=== PATIENT | male | born 1955 | race Caucasian/White ===

== ENCOUNTER 2017-12-16 10:47 | Outpatient (CLI) | payer BC ==
[2017-12-16 17:47] LABS: BASOPHILS # (AUTO) 0.1 10^3/uL (0.0-0.1); BASOPHILS % (AUTO) 1.7 %; EOSINOPHILS # (AUTO) 0.2 10^3/uL (0.0-0.7); HGB - HEMOGLOBIN 15.4 g/dL (14.0-18.0); MEAN CORPUSCULAR HEMOGLOBIN 32.4 pg (27.0-31.0); MEAN CORPUSCULAR HGB CONC 32.7 g/dL (32.0-36.0); MEAN CORPUSCULAR VOLUME 99.4 fL (80.0-94.0); MONOCYTES # (AUTO) 0.5 10^3/uL (0.0-1.0); MONOCYTES % (AUTO) 10.2 %; NEUTROPHILS % (AUTO) 42.1 %; PLT - PLATELET COUNT 276 10^3/uL (130-450); RED BLOOD COUNT 4.75 10^6/uL (4.70-6.10); RED CELL DISTRIBUTION WIDTH 13.4 % (12.0-15.0); WHITE BLOOD COUNT 4.8 x10^3/uL (4.8-10.8)
[2017-12-16 18:15] LABS: ALBUMIN 3.8 g/dL (3.2-5.5); ALBUMIN/GLOBULIN RATIO 1.2 (1.0-2.2); ALKALINE PHOSPHATASE 59 IU/L (42-121); ALT ALANINE AMINOTRANSFERASE 24 IU/L (10-60); AST ASPARTATE AMINOTRANSFERASE 25 IU/L (10-42); BILIRUBIN,TOTAL 0.7 mg/dL (0.2-1.0); BUN - BLOOD UREA NITROGEN 14 mg/dL (6-20); CALCIUM 8.8 mg/dL (8.5-10.3); CARBON DIOXIDE - CO2 24 mmol/L (21-32); CHLORIDE 106 mmol/L (101-111); CHOL/HDL RATIO 2.8 (<5.0); CHOLESTEROL 218 mg/dL; CREATININE 0.9 mg/dL (0.6-1.2); GFR - MDRD 86 (>89); GLUCOSE 120 mg/dL (70-100); HDL CHOLESTEROL 77 mg/dL; LDL CHOLESTEROL,CALCULATED 121 mg/dL; LDL/HDL RATIO 1.6 (<3.6); SODIUM 137 mmol/L (135-145); TOTAL PROTEIN 7.1 g/dL (6.7-8.2); VLDL CHOLESTEROL 20 mg/dL
== END 2017-12-16 10:48 | disposition home or self-care (01) ==
LOC: LAB.F 10:47
PROVIDERS: ATTEND Family Medicine
DX: Z12.5 Encounter for screening for malignant neoplasm of prostate (principal); E78.5 Hyperlipidemia, unspecified
CPT/HCPCS: 36415; 80053; 80061; 83721; 84153; 85025

== ENCOUNTER 2018-01-16 09:36 | Outpatient (CLI) | payer BC ==
--- NOTE | 2018-01-17 14:07 | CT Report ---
Procedure Date: 01/16/2018 Accession Number: [id number] / [id number] Procedure: CT - Chest/Lung Screen Low Dose W/O CPT Code: FULL RESULT: EXAM CT LUNG SCREEN EXAM DATE: 01/16/2018 09:54 AM. HISTORY: 62-year-old patient with [id number]-[id number] smoking history. Currently smoking: No. Years since quittin. COMPARISON: 06/05/2016. TECHNIQUE: CT examination of the entire thorax without contrast was performed using low-dose technique. Thin section coronal, axial, sagittal and MIP axial images were obtained. In accordance with CT protocol optimization, one or more of the following dose reduction techniques were utilized for this exam: automated exposure control, adjustment of mA and/or KV based on patient size, or use of iterative reconstructive technique. FINDINGS: Nodules: Right upper lobe: 3 mm new pulmonary nodule at the anterior right middle lobe. Right middle lobe: None. Right lower lobe: None. Left upper lobe: None. Left lower lobe: None. Emphysema: Mild upper lung predominant emphysema. Pleura: Unremarkable. Aorta: Unremarkable. Mediastinum: Unremarkable. Coronary calcifications: Moderate Other pulmonary findings: None. Other extrapulmonary findings: None. IMPRESSION: Lung-RADS ASSESSMENT CATEGORY: 2 - benign appearance behavior Probability of malignancy: Less than 1% RECOMMENDATION: Recommend continued annual screening with repeat low-dose chest CT in 12 months per lung RADS guidelines. RADIA
== END 2018-01-16 09:37 | disposition home or self-care (01) ==
LOC: DI 09:36
PROVIDERS: ATTEND Family Medicine
DX: R91.1 Solitary pulmonary nodule (principal); J43.9 Emphysema, unspecified; Z87.891 Personal history of nicotine dependence

== ENCOUNTER 2018-09-28 09:17 | Outpatient (CLI) | payer BC ==
[~2018-09-28 09:17] MED LIST: ALBUTEROL NEB 2.5 MG/3 ML INH ONE
== END 2018-09-28 09:18 | disposition home or self-care (01) ==
LOC: RT 09:17
PROVIDERS: ATTEND Family Medicine
DX: J45.998 Other asthma (principal)
CPT/HCPCS: 94010

== ENCOUNTER 2018-12-22 13:43 | Outpatient (CLI) | payer BC ==
--- NOTE | 2018-12-23 11:04 | XRAY Report ---
Reason: LUMBAR DISC DISORDER Procedure Date: 12/22/2018 Accession Number: [id number] / [id number] Procedure: WCP - Lumbar Spine 2 View CPT Code: FULL RESULT: EXAM: LUMBOSACRAL SPINE RADIOGRAPHY EXAM DATE: 12/22/2018 02:03 PM. CLINICAL HISTORY: LUMBAR DISC DISORDER. COMPARISONS: LUMBAR SPINE COMPLETE 09/17/2013 10:58 AM. TECHNIQUE: 3 views. FINDINGS: Mild diffuse degenerative changes of the lumbar spine are noted with a similar appearance to the previous study. There is atherosclerosis of the aorta. Stool and gas are seen throughout the bowel. There are no dilated loops of bowel to suggest the presence of an obstruction. IMPRESSION: Mild degenerative changes of the lumbar spine with a similar appearance to the previous study. RADIA
== END 2018-12-22 13:44 | disposition home or self-care (01) ==
LOC: DI.WCP 13:43
PROVIDERS: ATTEND Family Medicine
DX: M47.817 Spondylosis without myelopathy or radiculopathy, lumbosacral region (principal)
CPT/HCPCS: 72100

== ENCOUNTER 2019-02-19 10:53 | Outpatient (CLI) | payer BC ==
--- NOTE | 2019-02-23 15:31 | CT Report ---
Reason: NICOTINE ADDICTION Procedure Date: 02/19/2019 Accession Number: [id number] / [id number] Procedure: CT - Low Dose Lung Cancer Screen CPT Code: FULL RESULT: EXAM CT LUNG SCREEN EXAM DATE: 02/19/2019 11:17 AM. HISTORY: 63-year-old patient with [id number] smoking history. Currently smoking: No. Years since quittin years. COMPARISON: CHEST SCREEN LOW DOSE W/O 01/16/2018 9:50 AM. TECHNIQUE: CT examination of the entire thorax without contrast was performed using low-dose technique. Thin section coronal, axial, sagittal and MIP axial images were obtained. In accordance with CT protocol optimization, one or more of the following dose reduction techniques were utilized for this exam: automated exposure control, adjustment of mA and/or KV based on patient size, or use of iterative reconstructive technique. FINDINGS: Nodules: Right upper lobe: Previously described 3 mm nodule anteriorly is not well seen. Right middle lobe: New 3 mm anterior right middle lobe nodule is seen (image 83/4). Right lower lobe: None. Left upper lobe: None. Left lower lobe: None. Emphysema: Minimal. Pleura: Unremarkable. Aorta: Normal caliber. Minor calcification seen. Mediastinum: Unremarkable. Coronary calcifications: Moderate. Other pulmonary findings: None. Other extrapulmonary findings: None. IMPRESSION: Lung-RADS ASSESSMENT CATEGORY: 2 - benign appearance or behavior. Probability of malignancy: Less than 1%. RECOMMENDATION: Routine low-dose lung screening CT in 12 months. RADIA
== END 2019-02-19 10:54 | disposition home or self-care (01) ==
LOC: DI 10:53
PROVIDERS: ATTEND Family Medicine
DX: Z12.2 Encounter for screening for malignant neoplasm of respiratory organs (principal); Z87.891 Personal history of nicotine dependence

== ENCOUNTER 2020-03-01 10:52 | Outpatient (CLI) | payer BC ==
--- NOTE | 2020-03-01 17:26 | CT Report ---
PROCEDURE: Low Dose Lung Cancer Screen INDICATIONS: NICOTINE ADDICTION TECHNIQUE: Noncontrast low-dose 5 mm thick sections acquired from the pulmonary apices to the posterior costophr enic angles. 7 mm thick coronal and sagittal MIP reformats were then acquired. For radiation dose r eduction, the following was used: automated exposure control, adjustment of mA and/or kV according t o patient size. COMPARISON: 02/19/2019. FINDINGS: Image quality: Excellent. Lungs and pleura: Previously described 3 mm right upper lobe and right middle lobe pulmonary nodules are not well visualized on this exam. No new pulmonary nodules are visualized. No suspicious pulmona ry mass lesions. No septal thickening or nodularity. No acute airspace disease. Visualized airways ar e patent. Mediastinum: Heart size is normal. Atherosclerosis of the coronary arteries. No pericardial effusio n. No mediastinal adenopathy by size criteria. Thoracic aorta and central pulmonary arteries are no rmal in size. Esophagus is normal in caliber. No hiatal hernia. Bones and chest wall: No suspicious bony lesions. No vertebral body compression fractures. No axil amina or supraclavicular adenopathy by size criteria. The thyroid is normal in size. Abdomen: Visualized upper abdomen solid organs and bowel loops appear normal in the absence of contr ast. IMPRESSION: CT chest without acute cardiopulmonary abnormalities. Previously described 3 mm right middle lobe and right upper lobe nodules not well visualized. No new nodules visualized. Lung RADS assessment category: 2-benign Recommendation: Routine low-dose screening chest CT in 12 months. Reviewed by: Leonardo Woods MD on 03/01/2020 5:25 PM PDT Approved by: Leonardo Woods MD on 03/01/2020 5:25 PM PDT Station ID: [id number]
== END 2020-03-01 10:53 | disposition home or self-care (01) ==
LOC: DI 10:52
PROVIDERS: ATTEND Family Medicine
DX: Z12.2 Encounter for screening for malignant neoplasm of respiratory organs (principal); Z87.891 Personal history of nicotine dependence; R91.8 Other nonspecific abnormal finding of lung field
CPT/HCPCS: G0297 ×2

== ENCOUNTER 2020-03-02 09:50 | Outpatient (CLI) | payer BC ==
[2020-03-02 15:21] LABS: BASOPHILS # (AUTO) 0.1 10^3/uL (0.0-0.1); BASOPHILS % (AUTO) 1.2 %; EOSINOPHILS # (AUTO) 0.3 10^3/uL (0.0-0.7); EOSINOPHILS % (AUTO) 5.5 %; HGB - HEMOGLOBIN 16.1 g/dL (14.0-18.0); LYMPHOCYTES # (AUTO) 1.9 10^3/uL (1.5-3.5); LYMPHOCYTES % (AUTO) 36.8 %; MEAN CORPUSCULAR HEMOGLOBIN 32.5 pg (27.0-31.0); MEAN CORPUSCULAR HGB CONC 32.7 g/dL (32.0-36.0); MEAN CORPUSCULAR VOLUME 99.4 fL (80.0-94.0); MEAN PLATELET VOLUME 9.2 fL (7.4-11.4); MONOCYTES # (AUTO) 0.6 10^3/uL (0.0-1.0); MONOCYTES % (AUTO) 11.1 %; NEUTROPHILS # (AUTO) 2.3 10^3/uL (1.5-6.6); PLT - PLATELET COUNT 310 10^3/uL (130-450); RED BLOOD COUNT 4.96 10^6/uL (4.70-6.10); RED CELL DISTRIBUTION WIDTH 12.7 % (12.0-15.0); WHITE BLOOD COUNT 5.1 x10^3/uL (4.8-10.8)
[2020-03-02 15:54] LABS: ALBUMIN 4.1 g/dL (3.2-5.5); ALBUMIN/GLOBULIN RATIO 1.3 (1.0-2.2); ALKALINE PHOSPHATASE 58 IU/L (42-121); ALT ALANINE AMINOTRANSFERASE 25 IU/L (10-60); AST ASPARTATE AMINOTRANSFERASE 20 IU/L (10-42); BILIRUBIN,TOTAL 0.9 mg/dL (0.2-1.0); BUN - BLOOD UREA NITROGEN 18 mg/dL (6-20); CALCIUM 9.4 mg/dL (8.5-10.3); CARBON DIOXIDE - CO2 25 mmol/L (21-32); CHLORIDE 101 mmol/L (101-111); CHOL/HDL RATIO 2.5 (<5.0); CHOLESTEROL 210 mg/dL; GLUCOSE 114 mg/dL (70-100); HDL CHOLESTEROL 84 mg/dL; LDL CHOLESTEROL,CALCULATED 105 mg/dL; LDL/HDL RATIO 1.3 (<3.6); SODIUM 135 mmol/L (135-145); TOTAL PROTEIN 7.3 g/dL (6.7-8.2); VLDL CHOLESTEROL 21 mg/dL
[2020-03-02 18:42] LABS: HEMOGLOBIN A1c% 5.6 % (4.27-6.07)
== END 2020-03-02 09:51 | disposition home or self-care (01) ==
LOC: LAB.S 09:50
PROVIDERS: ATTEND Family Medicine
DX: J45.909 Unspecified asthma, uncomplicated (principal); Z12.5 Encounter for screening for malignant neoplasm of prostate; R73.01 Impaired fasting glucose; E78.5 Hyperlipidemia, unspecified
CPT/HCPCS: 36415; 80053; 80061; 83036; 83721; 84153; 84443; 85025

== ENCOUNTER 2021-03-14 10:44 | Outpatient (CLI) | payer MEDICARE ==
--- NOTE | 2021-03-14 15:06 | CT Report ---
PROCEDURE: Low Dose Lung Cancer Screen INDICATIONS: HIST OF SMOKING TECHNIQUE: Noncontrast low-dose 5 mm thick sections acquired from the pulmonary apices to the posterior costophr enic angles. 7 mm thick coronal and sagittal MIP reformats were then acquired. For radiation dose r eduction, the following was used: automated exposure control, adjustment of mA and/or kV according t o patient size. COMPARISON: None. FINDINGS: Lungs and pleura: Diffuse peribronchial cuffing suggestive of nonspecific bronchitis and/or reactive airways disease.Scattered subsegmental scarring/atelectasis. No acute consolidation. No discrete or suspicious pulmonary nodules. Pleura: No pleural effusion or pneumothorax. Heart: Mild/moderate coronary atherosclerotic calcifications. Lymph nodes: Normal. Thyroid: Negative Aorta: Normal Pulmonary arteries: Normal. Esophagus: Normal. Bones: Diffuse spondolytic changes and facet arthropathy. No compression fracture. Upper abdomen: Normal. IMPRESSION: No suspicious pulmonary nodules. Lung RADS 1. Recommend screening lung CT in 12 months. Mild to moderate coronary atherosclerosis. Reviewed by: Santos Arenas MD on 03/14/2021 3:05 PM PDT Approved by: Santos Arenas MD on 03/14/2021 3:05 PM PDT Station ID: [id number]
== END 2021-03-14 10:45 | disposition home or self-care (01) ==
LOC: DI 10:44
PROVIDERS: ATTEND Internal Medicine
DX: Z12.2 Encounter for screening for malignant neoplasm of respiratory organs (principal); I25.10 Atherosclerotic heart disease of native coronary artery without angina pectoris; F17.210 Nicotine dependence, cigarettes, uncomplicated

== ENCOUNTER 2021-03-29 10:55 | Outpatient (CLI) | payer MEDICARE ==
[2021-03-29 15:04] LABS: BASOPHILS % (AUTO) 0.7 %; EOSINOPHILS # (AUTO) 0.4 10^3/uL (0.0-0.7); EOSINOPHILS % (AUTO) 6.1 %; HCT - HEMATOCRIT 49.7 % (42.0-52.0); HGB - HEMOGLOBIN 15.9 g/dL (14.0-18.0); LYMPHOCYTES # (AUTO) 2.1 10^3/uL (1.5-3.5); LYMPHOCYTES % (AUTO) 35.8 %; MEAN CORPUSCULAR HEMOGLOBIN 32.1 pg (27.0-31.0); MEAN CORPUSCULAR VOLUME 100.4 fL (80.0-94.0); MONOCYTES # (AUTO) 0.7 10^3/uL (0.0-1.0); MONOCYTES % (AUTO) 12.5 %; NEUTROPHILS # (AUTO) 2.6 10^3/uL (1.5-6.6); NEUTROPHILS % (AUTO) 44.7 %; PLT - PLATELET COUNT 297 10^3/uL (130-450); RED BLOOD COUNT 4.95 10^6/uL (4.70-6.10); RED CELL DISTRIBUTION WIDTH 12.6 % (12.0-15.0); WHITE BLOOD COUNT 5.9 x10^3/uL (4.8-10.8)
[2021-03-29 15:31] LABS: ALBUMIN 4.2 g/dL (3.2-5.5); ALBUMIN/GLOBULIN RATIO 1.3 (1.0-2.2); ALKALINE PHOSPHATASE 52 IU/L (42-121); ALT ALANINE AMINOTRANSFERASE 27 IU/L (10-60); AST ASPARTATE AMINOTRANSFERASE 22 IU/L (10-42); BILIRUBIN,TOTAL 0.5 mg/dL (0.2-1.0); BUN - BLOOD UREA NITROGEN 20 mg/dL (6-20); CALCIUM 9.8 mg/dL (8.5-10.3); CARBON DIOXIDE - CO2 29 mmol/L (21-32); CHLORIDE 102 mmol/L (101-111); CHOL/HDL RATIO 2.9 (<5.0); CHOLESTEROL 250 mg/dL; GFR - MDRD 75 (>89); GLUCOSE 125 mg/dL (70-100); HDL CHOLESTEROL 86 mg/dL; LDL CHOLESTEROL,CALCULATED 142 mg/dL; LDL/HDL RATIO 1.7 (<3.6); POTASSIUM 4.5 mmol/L (3.5-5.0); SODIUM 140 mmol/L (135-145); TOTAL PROTEIN 7.4 g/dL (6.7-8.2); TRIGLYCERIDES 108 mg/dL; VLDL CHOLESTEROL 22 mg/dL
== END 2021-03-29 10:56 | disposition home or self-care (01) ==
LOC: LAB.S 10:55
PROVIDERS: ATTEND Internal Medicine
DX: E78.5 Hyperlipidemia, unspecified (principal); Z79.899 Other long term (current) drug therapy; Z12.5 Encounter for screening for malignant neoplasm of prostate
CPT/HCPCS: 36415; 80053; 80061; 85025; G0103; 83721; 84153

== ENCOUNTER 2021-04-18 15:05 | Outpatient (CLI) | payer MEDICARE ==
[2021-04-18 15:41] LABS: FECAL OCCULT BLOOD (FIT) NEGATIVE (NEGATIVE)
== END 2021-04-18 15:06 | disposition home or self-care (01) ==
LOC: LAB 15:05
PROVIDERS: ATTEND Internal Medicine
DX: Z12.11 Encounter for screening for malignant neoplasm of colon (principal)
CPT/HCPCS: 82274

== ENCOUNTER 2021-05-22 08:55 | Outpatient (CLI) | payer MEDICARE ==
--- NOTE | 2021-05-22 11:07 | Ultrasound Report ---
PROCEDURE: Aorta Screening INDICATIONS: SMOKING GREATER THAN 30 PACKS PER YEAR TECHNIQUE: Real time scanning was performed of the aorta and iliac arteries, with image documentatio n. COMPARISON: None FINDINGS: Aorta: Proximal aortic diameter measures 2.9 x 2.8 cm. Mid-aorta measures 2.3 x 2.1 cm. Distal aor tic diameter is 1.8 x 1.8 cm. Minimal atherosclerotic plaque in the distal abdominal aorta. Iliac arteries: Right common iliac artery measures 1.4 x 1.5 cm. Left common iliac artery measures 1.3 x 1.5 cm. IMPRESSION: Mild aortoiliac atherosclerosis with no aneurysm of the aorta or iliac arteries. Reviewed by: Melvin Zaidi MD on 05/22/2021 11:06 AM PST Approved by: Melvin Zaidi MD on 05/22/2021 11:06 AM PST Station ID: [id number]
== END 2021-05-22 08:56 | disposition home or self-care (01) ==
LOC: DI 08:55
PROVIDERS: ATTEND Internal Medicine
DX: Z13.6 Encounter for screening for cardiovascular disorders (principal); F17.210 Nicotine dependence, cigarettes, uncomplicated; I70.8 Atherosclerosis of other arteries

== ENCOUNTER 2021-09-18 08:00 | Outpatient (CLI) | payer MEDICARE ==
[2021-09-18 08:53] LABS: BASOPHILS % (AUTO) 0.6 %; EOSINOPHILS # (AUTO) 0.2 10^3/uL (0.0-0.7); EOSINOPHILS % (AUTO) 4.1 %; HCT - HEMATOCRIT 44.3 % (42.0-52.0); HGB - HEMOGLOBIN 15.1 g/dL (14.0-18.0); LYMPHOCYTES # (AUTO) 1.6 10^3/uL (1.5-3.5); LYMPHOCYTES % (AUTO) 32.8 %; MEAN CORPUSCULAR HEMOGLOBIN 30.8 pg (27.0-31.0); MEAN CORPUSCULAR HGB CONC 34.1 g/dL (32.0-36.0); MEAN CORPUSCULAR VOLUME 90.2 fL (80.0-94.0); MEAN PLATELET VOLUME 9.5 fL (7.4-11.4); MONOCYTES # (AUTO) 0.7 10^3/uL (0.0-1.0); NEUTROPHILS # (AUTO) 2.3 10^3/uL (1.5-6.6); NEUTROPHILS % (AUTO) 47.3 %; PLT - PLATELET COUNT 223 10^3/uL (130-450); RED BLOOD COUNT 4.91 10^6/uL (4.70-6.10); RED CELL DISTRIBUTION WIDTH 13.5 % (12.0-15.0); WHITE BLOOD COUNT 4.9 x10^3/uL (4.8-10.8)
[2021-09-18 09:14] LABS: ALBUMIN 4.2 g/dL (3.2-5.5); ALBUMIN/GLOBULIN RATIO 1.2 (1.0-2.2); ALKALINE PHOSPHATASE 68 IU/L (42-121); ALT ALANINE AMINOTRANSFERASE 50 IU/L (10-60); AST ASPARTATE AMINOTRANSFERASE 41 IU/L (10-42); BILIRUBIN,TOTAL 0.9 mg/dL (0.2-1.0); BUN - BLOOD UREA NITROGEN 17 mg/dL (6-20); CALCIUM 9.2 mg/dL (8.5-10.3); CARBON DIOXIDE - CO2 24 mmol/L (21-32); CHLORIDE 95 mmol/L (101-111); CHOL/HDL RATIO 1.8 (<5.0); CHOLESTEROL 142 mg/dL; CREATININE 2.1 mg/dL (0.6-1.2); GFR - MDRD 32 (>89); GLUCOSE 112 mg/dL (70-100); HDL CHOLESTEROL 77 mg/dL; LDL CHOLESTEROL,CALCULATED 51 mg/dL; LDL/HDL RATIO 0.7 (<3.6); POTASSIUM 2.7 mmol/L (3.5-5.0); SODIUM 136 mmol/L (135-145); TOTAL PROTEIN 7.7 g/dL (6.7-8.2); TRIGLYCERIDES 69 mg/dL; VLDL CHOLESTEROL 14 mg/dL
[2021-09-19 14:12] LABS: HEPATITIS A IGM NON-REACTIVE (NON-REACTIVE); HEPATITIS B CORE ANTIBODY IGM NON-REACTIVE (NON-REACTIVE); HEPATITIS B SURFACE ANTIGEN NON-REACTIVE (NON-REACTIVE); HEPATITIS C ANTIBODY NON-REACTIVE (NON-REACTIVE)
== END 2021-09-18 23:59 | disposition home or self-care (01) ==
LOC: LAB 08:00
PROVIDERS: ATTEND Internal Medicine
DX: E78.5 Hyperlipidemia, unspecified (principal); Z79.899 Other long term (current) drug therapy; Z11.59 Encounter for screening for other viral diseases
CPT/HCPCS: 36415; 80053; 80061; 80074; 83721; 85025

== ENCOUNTER 2021-09-29 11:39 | Outpatient (CLI) | payer MEDICARE ==
[2021-09-29 12:03] LABS: CALCIUM 9.1 mg/dL (8.5-10.3); CREATININE 1.3 mg/dL (0.6-1.2)
--- NOTE | 2021-09-29 12:39 | XRAY Report ---
PROCEDURE: Hip w/Pelvis 2-3V RT INDICATIONS: HIP PAIN,RIGHT TECHNIQUE: AP pelvis with lateral view(s) of the right hip(s). COMPARISON: None. FINDINGS: BONES/JOINTS: No acute, displaced fracture. Mild osteophytosis of the right superior lateral acetabul um. No widening of the pubic symphysis. The sacroiliac joints are symmetric. The femoral heads are normal ly seated within the acetabulum. SOFT TISSUES: No focal abnormality. IMPRESSION: 1.No significant abnormality. Reviewed by: Carlos Avalos MD on 09/29/2021 12:37 PM PDT Approved by: Carlos Avalos MD on 09/29/2021 12:37 PM PDT Station ID: [id number]
== END 2021-09-29 11:40 | disposition home or self-care (01) ==
LOC: DI 11:39
PROVIDERS: ATTEND Physician Assistant
DX: M25.551 Pain in right hip (principal); E87.6 Hypokalemia
CPT/HCPCS: 36415; 80048

== ENCOUNTER 2021-10-13 11:10 | Outpatient (CLI) | payer MEDICARE ==
[2021-10-13 11:33] LABS: ALBUMIN 4.1 g/dL (3.2-5.5); ALBUMIN/GLOBULIN RATIO 1.2 (1.0-2.2); BILIRUBIN,TOTAL 1.1 mg/dL (0.2-1.0); CALCIUM 9.2 mg/dL (8.5-10.3); CREATININE 1.2 mg/dL (0.6-1.2); POTASSIUM 4.3 mmol/L (3.5-5.0); TOTAL PROTEIN 7.6 g/dL (6.7-8.2)
== END 2021-10-13 11:11 | disposition home or self-care (01) ==
LOC: LAB 11:10
PROVIDERS: ATTEND Physician Assistant
DX: N17.9 Acute kidney failure, unspecified (principal)
CPT/HCPCS: 36415; 80053

== ENCOUNTER 2022-01-03 16:49 | Outpatient (CLI) | payer MEDICARE ==
--- NOTE | 2022-01-04 15:37 | XRAY Report ---
PROCEDURE: Shoulder 3 View LT INDICATIONS: SHOULDER IMPINGEMENT SYNDROME TECHNIQUE: 3 views of the shoulder were acquired. COMPARISON: None. FINDINGS: Bones: No fractures or dislocations. No suspicious bony lesions. Visualized ribs appear intact. S evere acromioclavicular degenerative narrowing. Humeral head is mildly high riding. Soft tissues: No suspicious soft tissue calcifications. IMPRESSION: Acromioclavicular degenerative change. High riding humeral head which can be seen with rotator cuff pathology. Reviewed by: Margarita Vasquez MD on 01/04/2022 3:36 PM PDT Approved by: Margarita Vasquez MD on 01/04/2022 3:36 PM PDT Station ID: [id number]
== END 2022-01-03 16:50 | disposition home or self-care (01) ==
LOC: DI 16:49
PROVIDERS: ATTEND Physician Assistant Medical
DX: M75.42 Impingement syndrome of left shoulder (principal); M19.012 Primary osteoarthritis, left shoulder

== ENCOUNTER 2022-02-23 07:23 | Outpatient (CLI) | payer MEDICARE ==
--- NOTE | 2022-02-23 09:32 | CT Report ---
PROCEDURE: Sinuses INDICATIONS: CHRONIC PANSINUSITIS TECHNIQUE: Noncontrast 3.0 mm axial images acquired from the frontal sinuses to the mid-sella, with coronal and sagittal reformats. For radiation dose reduction, the following was used: automated exposure control , adjustment of mA and/or kV according to patient size. COMPARISON: None. FINDINGS: Image quality: Excellent. Maxillary Sinuses: No bony remodeling or destruction. Moderate mucosal thickening is seen within the inferior left maxillary sinus. Ethmoid Air Cells: No bony remodeling or destruction. Sinuses are clear. Sphenoid Sinuses: No bony remodeling or destruction. Sinuses are clear. Frontal Sinuses: No bony remodeling or destruction. Sinuses are clear. The frontal sinuses are rel atively poorly developed. Ostiomeatal Complexes: Ostiomeatal complexes are patent. No Fercho cells. Miscellaneous: Visualized intra-orbital contents are normal. No amie bullosa. There is mild leftw stephen nasal septal deviation. IMPRESSION: Focal moderate mucosal thickening is seen within the inferior left maxillary sinus. Mild leftward nasal septal deviation noted. Reviewed by: Zeferino Gee MD on 02/23/2022 8:31 AM YI Approved by: Zeferino Gee MD on 02/23/2022 8:31 AM YI Station ID: [id number]
== END 2022-02-23 07:24 | disposition home or self-care (01) ==
LOC: DI 07:23
PROVIDERS: ATTEND Otolaryngology
DX: J32.4 Chronic pansinusitis (principal); J34.2 Deviated nasal septum

== ENCOUNTER 2022-02-26 09:25 | Outpatient (CLI) | payer MEDICARE ==
--- NOTE | 2022-02-26 16:20 | CT Report ---
PROCEDURE: Low Dose Lung Cancer Screen INDICATIONS: SMOKER TECHNIQUE: Noncontrast low-dose axial images were acquired from the pulmonary apices to the posterior costophren ic angles. Multiplanar MIP reformats were then reconstructed. For radiation dose reduction, the follo wing was used: automated exposure control, adjustment of mA and/or kV according to patient size. COMPARISON: None. FINDINGS: Image quality: Excellent. Lungs and pleura: Peripheral reticular thickening. No mass or significant pulmonary nodules. Airways are clear. No acute airspace opacity. No pleural effusion. No pneumothorax. Mediastinum: Heart size is normal. Moderate coronary artery calcifications.No pericardial effusion. No mediastinal adenopathy by size criteria. Thoracic aorta and central pulmonary arteries are norm al in size. Esophagus is normal in caliber. No hiatal hernia. Bones and chest wall: No suspicious bony lesions. No vertebral body compression fractures. No axil amina or supraclavicular adenopathy by size criteria. The thyroid is normal in size and there are no incidental findings. Abdomen: Visualized upper abdomen solid organs and bowel loops appear normal in the absence of contr ast. IMPRESSION: 1. No significant pulmonary nodules. LI-RADS 1. Recommend follow-up lung cancer screening chest CT in 12 months. 2. Moderate coronary artery calcifications. Reviewed by: Cortez Brooks MD on 02/26/2022 4:19 PM PDT Approved by: Cortez Brooks MD on 02/26/2022 4:19 PM PDT Station ID: [id number]
== END 2022-02-26 09:26 | disposition home or self-care (01) ==
LOC: DI 09:25
PROVIDERS: ATTEND Physician Assistant
DX: Z12.2 Encounter for screening for malignant neoplasm of respiratory organs (principal); F17.210 Nicotine dependence, cigarettes, uncomplicated

== ENCOUNTER 2022-03-20 08:53 | Outpatient (CLI) | payer MEDICARE ==
[2022-03-20 09:39] VITALS: BP 130/88
--- NOTE | 2022-03-20 09:39 | SLEEP CARE CONSULTATION ---
Information from patient questionnaire entered by Briana Hazel. I have reviewed and concur with the information entered by Briana Hazel. This document represents the service I personally performed and the decisions made by me, Christiana Duff ARNP. History of Present Illness Service Date and Time: 03/20/2022 0853 Reason for Visit: New patient, Previously diagnosed sleep apnea Chief Complaint: reports: Unrefreshed sleep, Snoring, Frequent awakenings at night Date of Onset: MANY YEARS Usual bedtime: varies; 9-10 PM Time it takes to fall asleep: 5-30 MINUTES Snores at night: Yes Observed to quit breathing while asleep: Yes Number of times waking at night: 2 Reasons for waking at night: reports: Snoring, Pain, Bathroom Toss, Turn, or Twitch while sleeping: Yes Recalls having dreams: Yes Usually gets out of bed at: 6-8AM Feels refreshed in the morning: Yes (AT TIMES YES, OTHER TIMES NO ) Morning headache: No Sleepy or fatigued during the day: No (VERY RARELY ) Ever fallen asleep while driving: No Takes day naps: No Dreams during day naps: No Prior sleep studies: Yes Year and Where: 2014 HOME, DR. Mendoza Type of Sleep Study: Home sleep study Additional HPI information: GABRIELA GAMBLE was previously diagnosed to have moderate positional, AHI 17, obstructive sleep apnea-hypopnea syndrome in 11/2014. He used a CPAP for a few years but got "tangled in the hose" and stopped used his CPAP for many years. I had the pleasure of seeing him regarding the possibility of him still having a sleep disorder. His current complaints are frequent night awakenings, snoring and unrefreshed sleep. He has sinus issues which cause lots of post nasal drip for which he has had a turbinate reduction. He does not feel this surgery has done anything for the post nasal drip. He states he still snores depending up on his position when he sleeps. He will have snoring wake him up and he will turn over. He will not always wake up feeling rested. He states he gets up a couple times a night for the bathroom. He can usually fall back to sleep quickly. He is here to seek help with getting better sleep and see if there is anything else that can help him. - Parasomnia Symptoms Ever been unable to move upon waking from sleep: No Walks in sleep: No Talks in sleep: No Ever acted out dreams in sleep: No Ever felt weak in the knees when startled or emotional: No Bothered by creepy, crawly, restless sensations in legs: No Problems with memory or concentration: No Subjective Initial [place] Sleepiness Scale score: 2 (03/19/22) Past Medical History Past Medical History: reports: Hypertension, Claustrophobia, Anxiety, Depression, Emphysema, GERD Social History The patient's occupation is a RE. Patient is Single and lives in [place]. Have you smoked in the past 12 months: No Cigarettes per day (20/pack): 20 Years of smokin Quit date: 1998 Smoking Pack Years: 25.0 Alcohol use: Yes Alcohol amount and frequency: 2-3 DAILY Caffeine use: Yes Caffeine amount and frequency: 16OZ DAILY Family History Family history of sleep disordered breathing: No (unknown) Allergies and Home Medications Known drug allergies: No Drug allergies reviewed: Yes (NKDA) Home medication list reviewed: Yes Allergy and home medication list: Allergies No Known Drug Allergies Allergy (Verified 09/18/14 17:25) Medications: Clonazepam BP medication (new, hasn't picked up yet) Review of Systems Weight loss over past 5 years: 20 Cardiovascular: reports: high blood pressure Respiratory: reports: wheeze, chronic cough Gastrointestinal: reports: heartburn Urinary: reports: frequency, urgency Psychiatric: reports: anxiety, depression Ear/Nose/Throat: reports: nasal congestion, sinus problems, injury to nose Musculoskeletal: reports: joint pain, neck pain Immunologic: reports: sneezing (POSTNASAL DRIP ) Physical Exam Vital signs obtained and entered by: MARYELLEN LUO Blood Pressure: 130/88 (left arm ) Cuff size: regular Heart Rate: 75 O2 Saturation: 97 Height: 6 ft Weight: 223 lb (214 at home w/out clothes) Body Mass Index: 30.2 BMI Classification: Obese Neck circumference: 17 (inches) Heart: regular rate and rhythm Lungs: clear bilaterally Impression and Plan 1. Obstructive Sleep Apnea-Hypopnea Syndrome, moderate, previously diagnosed in 2014 but no longer using a CPAP or other therapy. Still suggested by a history of loud and irregular snoring, observed cessation of breath while asleep, frequent awakening during the night and unrefreshed sleep. I recommend proceedin g to polysomnography to confirm the diagnosis and to assess severity. If the patient has significant sleep disordered breathing, a manual CPAP titration study will also be performed to find the optimal treatment pressure. I informed the patient of what the sleep studies involve and after some discussion, obtained agreement to proceed. The pathophysiology of obstructive sleep apnea- hypopnea syndrome was discussed with the patient and health risks of cardiovascular and cerebrovascular disease if not treated. Risks of drowsy driving discussed in detail and patient advised to avoid long distance driving and to loin puller at the first sign of drowsiness. Patient agreed to plan. * Schedule polysomnography * Avoid long distance driving or driving when feeling sleepy. * Avoid alcohol, sedative and muscle relaxant around bedtime. * Attempt to lose weight. * Review instructions provided by trained office staff on how to prepare for the sleep study. * Return for follow-up after sleep study completed. Counseling Topics: Weight loss health impact Visit Type: In Office Time Spent with Patient (minutes): 34 Provider Statement: I spent 100% of the Face to Face Visit with the patient with greater than 50% spent counseling the patient and coordination of care.
== END 2022-03-20 08:54 | disposition home or self-care (01) ==
LOC: SC 08:53
PROVIDERS: ATTEND Nurse Practitioner Family
DX: G47.33 Obstructive sleep apnea (adult) (pediatric) (principal); E66.9 Obesity, unspecified; Z68.30 Body mass index [BMI] 30.0-30.9, adult; Z87.891 Personal history of nicotine dependence
CPT/HCPCS: 99203; G0463; 99212

== ENCOUNTER 2022-04-11 09:32 | Outpatient (CLI) | payer MEDICARE | END 2022-04-11 09:33 | disposition home or self-care (01) | LOC: SC 09:32 | PROVIDERS: ATTEND Nurse Practitioner Family | DX: G47.33 Obstructive sleep apnea (adult) (pediatric) (principal); R09.02 Hypoxemia | CPT/HCPCS: G0399 ×2; 95806 ==

== ENCOUNTER 2022-04-27 13:56 | Outpatient (CLI) | payer MEDICARE ==
--- NOTE | 2022-04-27 13:50 | SLEEP CARE CONSULTATION ---
Information from patient questionnaire entered by Melissa Flores. I have reviewed and concur with the information entered by Melissa Folres. This document represents the service I personally performed and the decisions made by me, Christiana Duff ARNP. History of Present Illness Service Date and Time: 04/27/2022 1356 Initial [place] Sleepiness Scale score: 2 (03/19/22) Current [place] Sleepiness Scale score: 2 Additional HPI information: GABRIELA GAMBLE returns via video telehealth visit for follow up and results of the recently performed home sleep study. I explained the pathophysiology behind obstructive sleep apnea. We then spent q uite a bit of time discussing different treatment options. For mild obstructive sleep apnea, surgery and oral appliance are alternatives to nasal CPAP therapy but in moderate or severe cases, nasal CPAP is the most effective and reliable treatment. I reviewed the impact of weight changes on sleep apnea and strongly recommended losing weight. After some discussion, the patient opted to go with the nasal CPAP therapy. Nasal autoCPAP set at 4-15 cmH20 will be ordered with rationale explained. A manual titration study will be ordered if unable to find optimal pressure with office adjustments. I explained how CPAP machine works and what to expect when using the machine. Using CPAP every night in order to get used to it was emphasized. Patient advised to put CPAP mask on before getting into bed so as not to fall asleep without CPAP. To assist acclimation to CPAP use, it could also be used for a short time during day while reading or watching TV. The patient was instructed to call the CPAP supplier to discuss any mechanical problem that may occur. If the mask given is uncomfortable or is difficult to keep on through the night even with adjustment, contact the CPAP supplier as man y will replace with another mask style if notified before 30 days. If snoring or perceives is not getting enough air or too much air from the machine, notify this office. Patient counseled not drink alcohol less than 4 hours before bedtime as it can increase snoring and apnea. Patient was cautioned about risks of drowsy driving until sleepiness symptoms resolve. Patient denies drowsy driving. Sleep Study - Results Type of Sleep Study: Home sleep study (COMPLETED 04-11-22) Prior sleep studies: Yes Year and Where: 2014 HOME, DR. Mendoza Polysomnography/Home Sleep Study results: Physician Impression: The quality of the study is good. The length of the study is adequate (> 240 minutes). Please also see the tabulated and graphic data. 1. Obstructive Sleep Apnea-Hypopnea (ICD-10 G47.33), mild, with an AHI of 8.2/hr and matias SaO2 of 82%. During the study, the patient had 7 apneas (7 obstructive, 0 central, 0 mixed) and 40 hypopneas. The longest episode lasted 140.0 seconds. The patient did not sleep supine during this study (supine AHI was 0.0 and non-supine, 8.22). 2. Hypoxemia (ICD-10 R09.02), mild, with the lowest oxygen saturation of 82 % and 69.2 minutes with SaO2 under 90%. Baseline oxygen saturation was normal (Average oxygen saturation was 91%). Allergies and Home Medications Drug allergies reviewed: Yes (NKDA) Home medication list reviewed: Yes (antihistamine at night) Review of Systems Review of systems same as previous: No (coronary calcium deposits in heart, referred to cardiology) Physical Exam Vital signs obtained and entered by: VIA PHONE Height: 6 ft Weight: 213 lb (pt reported) Body Mass Index: 28.8 BMI Classification: Overweight Impression and Plan 1. Obstructive Sleep Apnea-Hypopnea Syndrome, mild, with lowest oxygen saturation of 82%. Positive pressure therapy could benefit hypertension, anxiety, depression and gastric reflux. As mentioned above, the patient will be started on nasal autoCPAP therapy with pressure set at 4-15 cmH2O. Compliance guidelines also reviewed. A copy of compliance guidelines will be given for reference at check out. 2. Hypoxemia, mild, with the lowest oxygen saturation of 82 % and 69.2 minutes with SaO2 under 90%. His baseline oxygen saturation was normal with an average oxygen saturation of 91%. 3. Overweight, unspecified. Currently patients BMI is 28.8. Obesity increases the risk of apnea, CPAP pressure requirements and overall health risks especially cardiovascular and diabetes. Thus patient is advised to lose weight. * Nasal auto CPAP therapy, pressure at 4-15 cm H2O. * Attempt to lose weight. * Avoid alcohol consumption near bedtime. * Avoid supine sleep until using CPAP. * The patient is again cautioned about driving until sleepiness completely resolves. * Return one month after CPAP obtained. I will assess response to therapy and compliance at that time. Counseling Topics: Weight loss health impact Visit Type: Telehealth Video Video Type: Message[employer] Patient Location: Home Location of Provider: Office Patient agrees and consents to this telehealth visit type: Yes Patient agrees to have their insurance billed: Yes Time Spent with Patient (minutes): 23 Provider Statement: I spent 100% of the Telehealth Video Call with the patient with greater than 50% spent counseling the patient and coordination of care.
== END 2022-04-27 13:57 | disposition home or self-care (01) ==
LOC: SC 13:56
PROVIDERS: ATTEND Nurse Practitioner Family
DX: G47.33 Obstructive sleep apnea (adult) (pediatric) (principal); R09.02 Hypoxemia; E66.3 Overweight; Z68.28 Body mass index [BMI] 28.0-28.9, adult
CPT/HCPCS: 99213; G0463; 99212

== ENCOUNTER 2022-05-01 08:04 | Outpatient (CLI) | payer MEDICARE | END 2022-05-01 08:05 | disposition home or self-care (01) | LOC: DI 08:04 | PROVIDERS: ATTEND Physician Assistant | DX: I77.810 Thoracic aortic ectasia (principal) | CPT/HCPCS: 93306 ==

== ENCOUNTER 2022-05-23 09:34 | Outpatient (CLI) | payer MEDICARE ==
[2022-05-23 09:55] LABS: ALBUMIN 3.7 g/dL (3.2-5.5); ALBUMIN/GLOBULIN RATIO 1.1 (1.0-2.2); BILIRUBIN,TOTAL 0.6 mg/dL (0.2-1.0); CALCIUM 8.8 mg/dL (8.5-10.3); CREATININE 1.1 mg/dL (0.6-1.2); POTASSIUM 4.3 mmol/L (3.5-5.0)
[2022-05-23 12:10] LABS: ESTIMATED AVERAGE GLUCOSE 126 mg/dL (70-100)
== END 2022-05-23 09:35 | disposition home or self-care (01) ==
LOC: LAB 09:34
PROVIDERS: ATTEND Physician Assistant
DX: R73.01 Impaired fasting glucose (principal)
CPT/HCPCS: 36415; 80053; 83036

== ENCOUNTER 2022-08-30 07:12 | Day surgery (SDC) | payer MEDICARE ==
--- NOTE | 2022-08-30 07:13 | ANESTHESIA ---
Pre-Anesthesia VS, & Labs - Diagnosis screening - Procedure colonoscopy Height: 6 ft - NPO >8 hours Last Fluid Intake: am prep - Lab Results Lab results reviewed: Yes Home Medications and Allergies Omeprazole [PriLOSEC] 20 mg PO DAILY 09/18/14 Simvastatin 20 mg PO DAILY 09/18/14 busPIRone [Buspar] 5 mg PO DAILY 09/18/14 Allergies/Adverse Reactions: Allergies Allergy/AdvReac Type Severity Reaction Status Date / Time prednisone AdvReac Hallucinati Verified 08/30/22 07:45 ons Anes History & Medical History - Anesthetic History Anesthesia Complications: reports: No previous complications Family history of Anesthesia Complications: Denies Family history of Malignant Hyperthermia: Denies - Medical History Cardiovascular: reports: Hypertension, High cholesterol Pulmonary: reports: Sleep apnea Gastrointestinal: reports: GERD Smoking Status: Never smoker - Surgical History General: reports: Colonoscopy Exam General: Alert, Oriented x3, Cooperative Dental: WNL Mouth Openin Fingerbreadth Neck Mobility: Normal Mallampati classification: II Thyromental Distance: 4-6 cm Respiratory: Lungs clear, Normal breath sounds, No respiratory distress Cardiovascular: Regular rate Neurological: Normal speech Mental/Cognitive Status: Alert/Oriented X3, Normal for patient Cognitive Status: Within normal limits Plan Anesthesia Type: Total IV Consent for Procedure(s) Verified and Reviewed: Yes Code Status: Attempt Resuscitation ASA classification: 2-Mild systemic disease Is this case an emergency?: No
[2022-08-30] MEDS ORDERED: LACTATED RINGERS 1,000 ML IV ONE (07:16)
[2022-08-30] MEDS ORDERED: PROPOFOL 500 MG/50 ML 500 MG/50 ML VIAL ONE (07:36)
[2022-08-30] MEDS ORDERED: MIDAZOLAM 2 MG/2 ML VIAL ONE (07:56)
[2022-08-30] MEDS ORDERED: LIDOCAINE-PF 2% 10 ML AMP SUBQ ONE (08:32)
[2022-08-30] MEDS ORDERED: LACTATED RINGERS 500 ML IV ONE (08:55)
[2022-08-30 09:14] VITALS: BP 102/59
--- NOTE | 2022-08-30 09:32 | ANESTHESIA POST OP EVALUATION ---
Anesthesia Post Eval - Post Anesthesia Eval Vitals: Last Vital Signs Temp 36.5 C 08/30/22 09:13 Pulse 68 08/30/22 09:13 Resp 18 08/30/22 09:13 BP 102/59 L 08/30/22 09:13 Pulse Ox 99 08/30/22 09:13 O2 Flow Rate CV Function Including HR & BP: Stable Pain Control: Satisfactory Nausea & Vomiting: Negative Mental Status: Baseline Respiratory Status: Airway Patent Hydration Status: Satisfactory Anesthesia Complications: None
== END 2022-08-30 07:13 | disposition home or self-care (01) ==
LOC: SDS 07:12
PROVIDERS: ATTEND Surgery
PROC: 0DBN8ZZ Excision of Sigmoid Colon, Via Natural or Artificial Opening Endoscopic (ICD-10-PCS; 2022-08-30)
PROC: 0DBF8ZX Excision of Right Large Intestine, Via Natural or Artificial Opening Endoscopic, Diagnostic (ICD-10-PCS; 2022-08-30)
PROC: 0DBG8ZX Excision of Left Large Intestine, Via Natural or Artificial Opening Endoscopic, Diagnostic (ICD-10-PCS; 2022-08-30)
PROC: 0DBK8ZZ Excision of Ascending Colon, Via Natural or Artificial Opening Endoscopic (ICD-10-PCS; principal; 2022-08-30 08:30)
DX: Z12.11 Encounter for screening for malignant neoplasm of colon (principal); D12.2 Benign neoplasm of ascending colon; D12.5 Benign neoplasm of sigmoid colon; K57.30 Diverticulosis of large intestine without perforation or abscess without bleeding; K64.8 Other hemorrhoids; G47.30 Sleep apnea, unspecified; J44.9 Chronic obstructive pulmonary disease, unspecified; F17.210 Nicotine dependence, cigarettes, uncomplicated
CPT/HCPCS: 45380; 45385; J7120

== ENCOUNTER 2022-11-14 09:14 | Outpatient (CLI) | payer MEDICARE ==
[2022-11-14 09:28] LABS: BASOPHILS # (AUTO) 0.1 10^3/uL (0.0-0.1); BASOPHILS % (AUTO) 0.8 %; EOSINOPHILS # (AUTO) 0.2 10^3/uL (0.0-0.7); EOSINOPHILS % (AUTO) 2.6 %; HCT - HEMATOCRIT 46.2 % (42.0-52.0); HGB - HEMOGLOBIN 15.1 g/dL (14.0-18.0); LYMPHOCYTES # (AUTO) 1.8 10^3/uL (1.5-3.5); LYMPHOCYTES % (AUTO) 27.5 %; MEAN CORPUSCULAR HEMOGLOBIN 31.9 pg (27.0-31.0); MEAN CORPUSCULAR HGB CONC 32.7 g/dL (32.0-36.0); MEAN CORPUSCULAR VOLUME 97.7 fL (80.0-94.0); MEAN PLATELET VOLUME 8.5 fL (7.4-11.4); MONOCYTES # (AUTO) 0.7 10^3/uL (0.0-1.0); MONOCYTES % (AUTO) 10.8 %; NEUTROPHILS # (AUTO) 3.9 10^3/uL (1.5-6.6); PLT - PLATELET COUNT 222 10^3/uL (130-450); RED BLOOD COUNT 4.73 10^6/uL (4.70-6.10); WHITE BLOOD COUNT 6.7 x10^3/uL (4.8-10.8)
[2022-11-14 09:46] LABS: ALBUMIN/GLOBULIN RATIO 1.1 (1.0-2.2); ALKALINE PHOSPHATASE 46 IU/L (42-121); ALT ALANINE AMINOTRANSFERASE 26 IU/L (10-60); AST ASPARTATE AMINOTRANSFERASE 25 IU/L (10-42); BILIRUBIN,TOTAL 0.9 mg/dL (0.2-1.0); BUN - BLOOD UREA NITROGEN 14 mg/dL (6-20); CALCIUM 9.1 mg/dL (8.5-10.3); CARBON DIOXIDE - CO2 27 mmol/L (21-32); CHLORIDE 105 mmol/L (101-111); CHOL/HDL RATIO 2.4 (<5.0); CHOLESTEROL 175 mg/dL; CREATININE 1.1 mg/dL (0.6-1.2); GFR - MDRD 67 (>89); GLUCOSE 127 mg/dL (70-100); HDL CHOLESTEROL 72 mg/dL; LDL CHOLESTEROL,CALCULATED 73 mg/dL; SODIUM 140 mmol/L (135-145); TOTAL PROTEIN 7.6 g/dL (6.7-8.2); TRIGLYCERIDES 151 mg/dL; VLDL CHOLESTEROL 30 mg/dL
[2022-11-14 09:55] LABS: THYROID STIMULATING HORMONE 3.23 uIU/mL (0.34-5.60)
[2022-11-14 10:10] LABS: ESTIMATED AVERAGE GLUCOSE 120 mg/dL (70-100); HEMOGLOBIN A1c% 5.8 % (4.27-6.07)
== END 2022-11-14 09:15 | disposition home or self-care (01) ==
LOC: LAB 09:14
PROVIDERS: ATTEND Physician Assistant
DX: I10 Essential (primary) hypertension (principal); E78.5 Hyperlipidemia, unspecified; R73.03 Prediabetes
CPT/HCPCS: 36415; 80053; 80061; 83036; 83721; 84443; 85025

== ENCOUNTER 2023-04-18 08:23 | Outpatient (CLI) | payer MEDICARE ==
--- NOTE | 2023-04-18 15:05 | CT Report ---
PROCEDURE: Low Dose Lung Cancer Screen INDICATIONS: SMOKER TECHNIQUE: A CT scan of the chest was performed. Intravenous contrast media was not administered. Images were re corded and evaluated at appropriate window settings. Reformats: axial MIP of the chest, coronal and s agittal. For radiation dose reduction, the following was used: automated exposure control, adjustment of mA and/or kV according to patient size. COMPARISON: CT chest on March 24, 2021. FINDINGS: Image quality: Excellent. Prior cancer history: No Lungs and pleura: Compared to CT chest dated January 26, 2018, no new or enlarging solid pulmonary nod ules. Stable mild bilateral apical peripheral reticulation, likely senescent. No pleural effusion or pneumothorax. Mild apical predominant centrilobular emphysema. Patent central airways. Mediastinum: Heart size is normal. No pericardial effusion. No large vessel abnormality. No mediastin al adenopathy by size criteria. Mild calcification of the thoracic aorta. Moderate to marked coronar y vessel calcification, similar to prior. Chest wall and lower neck: Thyroid is unremarkable. No axillary or supraclavicular adenopathy by size . No hiatal hernia. Bones: No acute fractures. No aggressive appearing lytic or blastic osseous lesions. Mild multilevel degenerative changes of the spine. Upper Abdomen: Unremarkable. IMPRESSION: 1. Compared to CT chest dated January 26, 2018, no new or enlarging solid pulmonary nodules. Lung RAD: 1 - Negative. Recommendation: Continue annual screening in 12 Months with LDCT 2. Moderate to marked coronary vessel calcifications, similar to prior. 3. Mild emphysema. Reviewed by: Christelle Cruz MD on 04/18/2023 3:03 PM PST Approved by: Christelle Cruz MD on 04/18/2023 3:03 PM PST Station ID: [id number]
== END 2023-04-18 08:24 | disposition home or self-care (01) ==
LOC: DI 08:23
PROVIDERS: ATTEND Physician Assistant
DX: Z12.2 Encounter for screening for malignant neoplasm of respiratory organs (principal); F17.210 Nicotine dependence, cigarettes, uncomplicated; I25.10 Atherosclerotic heart disease of native coronary artery without angina pectoris; J43.2 Centrilobular emphysema

== ENCOUNTER 2023-05-14 13:59 | Outpatient (CLI) | payer MEDICARE ==
[2023-05-14 14:26] LABS: CHOL/HDL RATIO 2.9 (<5.0); CHOLESTEROL 168 mg/dL; HDL CHOLESTEROL 57 mg/dL; LDL CHOLESTEROL,CALCULATED 48 mg/dL; LDL/HDL RATIO 0.8 (<3.6); TRIGLYCERIDES 313 mg/dL (48-352); VLDL CHOLESTEROL 63 mg/dL
== END 2023-05-14 14:00 | disposition home or self-care (01) ==
LOC: LAB 13:59
PROVIDERS: ATTEND Internal Medicine Interventional Cardiology
DX: E78.5 Hyperlipidemia, unspecified (principal)
CPT/HCPCS: 36415; 80061; 83721